=== PATIENT | male | born 2000 | race Asian ===

== ENCOUNTER 2018-12-25 16:04 | Emergency (ER) | payer OTHER ==
--- NOTE | 2018-12-25 16:17 | UC ---
Nausea/Vomiting/Diarrhea HPI - HPI Summary HPI Summary: Patient is a 18-year-old male who presents to the urgent care with a chief complaint of having nausea versus food poisoning. He reports that unknown he ate shrimp, spaghetti, sea food, chicken, pork and meat. Couple hours later the patient developed these type of nausea symptom. She has tried to vomit but he hasnt been able to. He denies any abdominal pain, diarrhea or constipation. The only complaint is feeling nauseous. He has no fevers or chills, has no other complaints. - History of Current Complaint Stated Complaint: ABDOMINAL PAIN Time Seen by Provider: 12/25/18 16:09 Hx Obtained From: Patient Onset/Duration: Sudden Onset Severity Initially: Mild Severity Currently: Mild Pain Intensity: 0 - Allergies/Home Medications Allergies/Adverse Reactions: Allergies Allergy/AdvReac Type Severity Reaction Status Date / Time Penicillins Allergy Intermediate Rash Verified 12/25/18 16:16 PMH/Surg Hx/FS Hx/Imm Hx Previously Healthy: Yes - Surgical History Surgical History: None - Family History Known Family History: Positive: Non-Contributory - Social History Occupation: Student Lives: Dormitory/Roommates Alcohol Use: None Substance Use Type: None Smoking Status (MU): Never Smoked Tobacco Have You Smoked in the Last Year: No Review of Systems All Other Systems Reviewed And Are Negative: Yes Constitutional: Positive: Negative Skin: Positive: Negative Eyes: Positive: Negative ENT: Positive: Negative Respiratory: Positive: Negative Cardiovascular: Positive: Negative Gastrointestinal: Positive: Nausea Genitourinary: Positive: Negative Motor: Positive: Negative Neurovascular: Positive: Negative Musculoskeletal: Positive: Negative Neurological: Positive: Negative Psychological: Positive: Negative Is Patient Immunocompromised?: No Physical Exam - Summary Physical Exam Summary: VITAL SIGNS: Reviewed. GENERAL: Patient is a well developed and nourished male who is lying comfortable in the stretcher. Patient is not in any acute respiratory distress. HEAD AND FACE: No signs of trauma. No ecchymosis, hematomas or skull depressions. No sinus tenderness. EYES: PERRLA, EOMI x 2, No injected conjunctiva, no nystagmus. EARS: Hearing grossly intact. Ear canals and tympanic membranes are within normal limits. MOUTH: Oropharynx within normal limits. NECK: Supple, trachea is midline, no adenopathy, no JVD, no carotid bruit, no c- spine tenderness, neck with full ROM. CHEST: Symmetric, no tenderness at palpation LUNGS: Clear to auscultation bilaterally. No wheezing or crackles. CVS: Regular rate and rhythm, S1 and S2 present, no murmurs or gallops appreciated. ABDOMEN: Soft, non-tender. No signs of distention. No rebound no guarding, and no masses palpated. Bowel sounds are normal. EXTREMITIES: FROM in all major joints, no edema, no cyanosis or clubbing. NEURO: Alert and oriented x 3. No acute neurological deficits. Speech is normal and follows commands. SKIN: Dry and warm Triage Information Reviewed: Yes Naus/Vom/Diarrhea Course/Dx - Course Course Of Treatment: In the urgent care or physical exams the patients abdomen is soft nontender with positive bowel sounds. Since the patient doesnt have any abdominal pain or any nausea and the patient was given Zofran. At this point the patient will be discharged home with a prescription for Zofran. Patient was instructed to go to the emergency room or return to the urgent care if he develops any diarrhea, abdominal pain, or any other symptom. The patient understands and agrees. - Differential Dx/Diagnosis Provider Diagnosis: Nausea Condition At Discharge: Stable Discharge - Sign-Out/Discharge Documenting (check all that apply): Patient Departure All imaging exams completed and their final reports reviewed: No Studies - Discharge Plan Condition: Stable Disposition: HOME Prescriptions: Ondansetron ODT TAB* [Zofran 4 MG Odt TAB*] 4 mg SL Q6H PRN #10 tab PRN Reason: Nausea Patient Education Materials: Acute Nausea and Vomiting (ED) Referrals: No Primary Care Phys,NOPCP [Primary Care Provider] - [facility] [place] [facility] [Outside] Additional Instructions: Take medications as instructed Increase your fluid intake Return to the or go to the ED if symptoms worsen - Billing Disposition and Condition Condition: STABLE Disposition: Home
[2018-12-25 16:18] VITALS: BP 104/62
[2018-12-25] MEDS ORDERED: Ondansetron ODT TAB* 4 MG SL PRN (16:18)
[2018-12-25] MEDS ORDERED: Ondansetron ODT TAB* 4 MG SL ONE (16:21)
== END 2018-12-25 16:33 | disposition home or self-care (01) ==
LOC: UCEAST 16:04
DX: R11.0 Nausea (principal); Z88.0 Allergy status to penicillin
CPT/HCPCS: 99202; A9270-GY; G0463